=== PATIENT | male | born 1990 | race American Indian/Alaskan Native ===

== ENCOUNTER 2018-10-18 09:41 | Emergency (ER) | payer SELFPAY ==
[2018-10-18] MEDS ORDERED: TORADOL IV ONE (09:42)
[2018-10-18] MEDS ORDERED: NACL 0.9% 1000 ML 1,000 ML IV ONE (09:42)
[2018-10-18] MEDS ORDERED: XYLOCAINE 1% 20 mL INFILTRATI ONE (09:44)
[2018-10-18] MEDS ORDERED: NACL 0.9% IR ONE (09:44)
[2018-10-18] MEDS ORDERED: TRIPLE ANTIBIOTIC TP ONE (09:44)
[2018-10-18] MEDS ORDERED: BOOSTRIX IM ONE (09:44)
[2018-10-18] MEDS ORDERED: MORPHINE IV ONE (09:45)
--- NOTE | 2018-10-18 09:46 | Event Note ---
ED Screening Note ED Screening Note: WAS ON CONSTRUCTION SITE PIECE OF METAL FELL FROM ? HEIGHT HITTING HIM IN HEAD FRIEND "GOT HIM UP" BLEEDING FROM HEAD CONTROLLED ABC INTACT ALERT TO PERSON, PLACE, TIME AND SITUATION PERRLA 4 BILATERAL C COLLAR TO MAIN ED This initial assessment/diagnostic orders/clinical plan/treatment(s) is/are subj ect to change based on patients health status, clinical progression and re- assessment by fellow clinical providers in the ED. Further treatment and workup at subsequent clinical providers discretion. Patient/guardian urged not to elope from the ED as their condition may be serious if not clinically assessed and managed. Initial orders include:
[2018-10-18 09:53] LABS: Basophils # (Auto) 0.1 K/mm3 (0.0-0.1); Basophils % (Auto) 1.1 % (0.0-1.8); Eosinophils # (Auto) 0.2 K/mm3 (0.0-0.4); Eosinophils % (Auto) 2.6 % (0.0-4.3); Lymphocytes # (Auto) 2.6 K/mm3 (1.2-5.4); Lymphocytes % (Auto) 37.6 % (13.4-35.0); Mean Corpuscular HGB Conc 35 % (32-34); Mean Corpuscular Volume 89 fl (84-94); Monocytes # (Auto) 0.6 K/mm3 (0.0-0.8); Platelet Count 250 K/mm3 (140-440); Red Blood Count 5.17 M/mm3 (3.65-5.03); Red Cell Distribution Width 14.1 % (13.2-15.2)
--- NOTE | 2018-10-18 09:53 | Emergency Department Report ---
ED Head Trauma HPI - General Stated complaint: HIT IN HEAD Time Seen by Provider: 10/18/18 09:46 Source: patient Mode of arrival: Wheelchair Limitations: No Limitations - History of Present Illness Initial comments: She is a 28-year-old male that presents emergency room for head injury. Patient states she was at work and a piece of steel hit him in the head. Patient states she sustained a laceration with bleeding. Patient states he lost consciousness. Coworkers at bedside. Coworkers does state he lost consciousness was for a few seconds. Patient states that he is feeling nauseous. Patient states he vomited one time. Patient states he is feeling weak. Patient states he had a little confusion after he had had. Patient complaining of a headache. Patient states the headache is a 7 out of 10. He states that headache is better with rest and worse with exertion. MD Complaint: head injury, head pain -: Sudden Mechanism of Injury: machine or tool related Location: frontal Loss of Consciousness: yes, second(s) Previous Trauma to this Area: No Place: work Radiation: none Severity: severe Severity scale (0 -10): 7 Quality: sharp Consistency: constant Provoking factors: none known Other Injuries: laceration Associated Symptoms: confusion, nausea, vomiting, vertigo, neck pain. denies: amnesia, repetitive questioning, vision changes, syncope, numbness, weakness, tingling - Related Data Previous Rx's Medication Instructions Recorded Last Taken Type Ondansetron [Zofran Odt] 4 mg PO Q8HR PRN #15 tab.rapdis 10/18/18 Unknown Rx Allergies/Adverse reactions: Allergies Allergy/AdvReac Type Severity Reaction Status Date / Time No Known Allergies Allergy Unverified 10/18/18 10:18 ED Review of Systems ROS: Stated complaint: HIT IN HEAD Other details as noted in HPI Constitutional: denies: chills, fever Eyes: denies: eye pain, eye discharge, vision change ENT: denies: ear pain, throat pain Respiratory: denies: cough, shortness of breath, wheezing Cardiovascular: denies: chest pain, palpitations Endocrine: no symptoms reported Gastrointestinal: denies: abdominal pain, nausea, diarrhea Genitourinary: denies: urgency, dysuria Musculoskeletal: denies: back pain, joint swelling, arthralgia Skin: denies: rash, lesions Neurological: headache, confusion. denies: weakness, paresthesias Psychiatric: denies: anxiety, depression Hematological/Lymphatic: denies: easy bleeding, easy bruising ED Past Medical Hx - Past Medical History Previous Medical History?: No - Surgical History Past Surgical History?: No - Family History Family history: no significant - Social History Smoking Status: Never Smoker Substance Use Type: None - Medications Home Medications: Home Medications Medication Instructions Recorded Confirmed Last Taken Type Ondansetron [Zofran Odt] 4 mg PO Q8HR PRN #15 tab.rapdis 10/18/18 Unknown Rx ED Physical Exam - General Limitations: No Limitations General appearance: alert, in no apparent distress - Head Head exam: Present: normal inspection (except for right frontal laceration), other - Eye Eye exam: Present: normal appearance - ENT ENT exam: Present: mucous membranes moist - Neck Neck exam: Present: normal inspection - Respiratory Respiratory exam: Present: normal lung sounds bilaterally. Absent: respiratory distress - Cardiovascular Cardiovascular Exam: Present: regular rate, normal rhythm. Absent: systolic mu rmur, diastolic murmur, rubs, gallop - GI/Abdominal GI/Abdominal exam: Present: soft, normal bowel sounds - Rectal Rectal exam: Present: deferred - Extremities Exam Extremities exam: Present: normal inspection - Back Exam Back exam: Present: normal inspection - Neurological Exam Neurological exam: Present: alert, oriented X3 - Psychiatric Psychiatric exam: Present: normal affect, normal mood - Skin Skin exam: Present: warm, dry, intact, normal color. Absent: rash ED Course Vital Signs 10/18/18 10/18/18 10/18/18 09:58 10:10 10:20 Temperature 99.0 F Pulse Rate 72 Respiratory 15 20 Rate Blood Pressure 144/88 Blood Pressure [Left] O2 Sat by Pulse 98 98 Oximetry 10/18/18 11:54 Temperature Pulse Rate 55 L Respiratory 16 Rate Blood Pressure Blood Pressure 127/89 [Left] O2 Sat by Pulse 98 Oximetry - Reevaluation(s) Reevaluation #1: Initial evaluation has been done. Patient placed on a code trauma. Patient was taken to CT scan. Patient's labs will be done. Once we have CT scan results we will close the left frontal/scalp laceration. 10/18/18 10:06 Discussed all results with patient. We will close the laceration at this time. C-collar removed. The patient states his pain is controlled. Patient states he is feeling better. Patient agrees to plan of care. 10/18/18 11:55 Laceration to the scalp closed. See procedure note 10/18/18 12:26 Patient ambulated without problems. Patient did not have any symptoms or problems ambulating. Discussed all results with patient. Patient is stable for discharge. Patient will be discharged home.. Patient agrees to plan of care.. Patient given discharge instructions. Patient voiced understanding of dis charge instructions. 10/18/18 12:36 - Laceration /Wound Repair Right Head Wound Location: head Wound's Depth, Shape: superficial Wound Explored: clean Betadine Prep?: Yes Sterile Dressing Applied?: Yes Progress: Prior to closure patient wound irrigated with 100 mL of saline. 5 cm laceration closed with 6 heidi. Bleeding controlled. Edges well approximated. Patient tolerated procedure. No complications noted. - Lab Data Result diagrams: 10/18/18 09:42 10/18/18 09:42 Lab Results 10/18/18 10/18/18 10/18/18 Range/Units 09:42 09:42 09:42 WBC 7.0 (4.5-11.0) K/mm3 RBC 5.17 H (3.65-5.03) M/mm3 Hgb 16.0 H (11.8-15.2) gm/dl Hct 46.0 H (35.5-45.6) % MCV 89 (84-94) fl MCH 31 (28-32) pg MCHC 35 H (32-34) % RDW 14.1 (13.2-15.2) % Plt Count 250 (140-440) K/mm3 Lymph % (Auto) 37.6 H (13.4-35.0) % [place] % (Auto) 8.0 H (0.0-7.3) % Eos % (Auto) 2.6 (0.0-4.3) % Baso % (Auto) 1.1 (0.0-1.8) % Lymph # 2.6 (1.2-5.4) K/mm3 [place] # 0.6 (0.0-0.8) K/mm3 Eos # 0.2 (0.0-0.4) K/mm3 Baso # 0.1 (0.0-0.1) K/mm3 Seg Neutrophils % 50.7 (40.0-70.0) % Seg Neutrophils # 3.6 (1.8-7.7) K/mm3 PT 12.6 (12.2-14.9) Sec. INR 0.97 (0.87-1.13) APTT 22.8 L (24.2-36.6) Sec. Sodium 141 (137-145) mmol/L Potassium 4.2 (3.6-5.0) mmol/L Chloride 103.7 (98-107) mmol/L Carbon Dioxide 21 L (22-30) mmol/L Anion Gap 21 mmol/L BUN 27 H (9-20) mg/dL Creatinine 1.2 (0.8-1.5) mg/dL Estimated GFR > 60 ml/min BUN/Creatinine Ratio 23 % Glucose 153 H (75-100) mg/dL Calcium 9.7 (8.4-10.2) mg/dL Total Bilirubin 0.70 (0.1-1.2) mg/dL AST 24 (5-40) units/L ALT 29 (7-56) units/L Alkaline Phosphatase 100 (35-129) units/L Total Protein 7.3 (6.3-8.2) g/dL Albumin 4.4 (3.9-5) g/dL Albumin/Globulin Ratio 1.5 % Plasma/Serum Alcohol (0-0.07) % Blood Type Antibody Screen 10/18/18 10/18/18 Range/Units 09:42 09:42 WBC (4.5-11.0) K/mm3 RBC (3.65-5.03) M/mm3 Hgb (11.8-15.2) gm/dl Hct (35.5-45.6) % MCV (84-94) fl MCH (28-32) pg MCHC (32-34) % RDW (13.2-15.2) % Plt Count (140-440) K/mm3 Lymph % (Auto) (13.4-35.0) % [place] % (Auto) (0.0-7.3) % Eos % (Auto) (0.0-4.3) % Baso % (Auto) (0.0-1.8) % Lymph # (1.2-5.4) K/mm3 [place] # (0.0-0.8) K/mm3 Eos # (0.0-0.4) K/mm3 Baso # (0.0-0.1) K/mm3 Seg Neutrophils % (40.0-70.0) % Seg Neutrophils # (1.8-7.7) K/mm3 PT (12.2-14.9) Sec. INR (0.87-1.13) APTT (24.2-36.6) Sec. Sodium (137-145) mmol/L Potassium (3.6-5.0) mmol/L Chloride (98-107) mmol/L Carbon Dioxide (22-30) mmol/L Anion Gap mmol/L BUN (9-20) mg/dL Creatinine (0.8-1.5) mg/dL Estimated GFR ml/min BUN/Creatinine Ratio % Glucose (75-100) mg/dL Calcium (8.4-10.2) mg/dL Total Bilirubin (0.1-1.2) mg/dL AST (5-40) units/L ALT (7-56) units/L Alkaline Phosphatase (35-129) units/L Total Protein (6.3-8.2) g/dL Albumin (3.9-5) g/dL Albumin/Globulin Ratio % Plasma/Serum Alcohol < 0.01 (0-0.07) % Blood Type O POSITIVE Antibody Screen Negative - Radiology Data Radiology results: report reviewed CT scan of cervical spine: History: Trauma. Findings: Normal height of vertebral bodies and intervertebral disc are normal articular surfaces. No fracture appeared normal. No paravertebral soft tissue. Impression: No evidence of acute fracture. CT scan of head without IV contrast: History: Trauma. Findings: Ventricles are normal in size and midline in location. No evidence of acute ischemia, hemorrhage or mass. No extra-axial fluid collection. Normal brainstem and cerebellum. Normal visualized sinuses and mastoid air cells. Impression: No acute intracranial abnormality. - Medical Decision Making Patient is a 28-year-old male that presents emergency room for head injury. Patient found to have a scalp laceration and a concussion. Patient's CT of the head negative. Patient's CT of the C-spine negative. Patient symptoms improved. Patient responded well to therapy. Patient's laceration closed with 6 heidi. Patient given staple instructions. Patient stable for discharge. Patient ambulate without problem. Patient had no symptoms or dizziness or nausea with ambulation. Patient will need to be off work until cleared by neurologist to return to work due to the severity of the head injury. - Differential Diagnosis injury. Concussion. Loss of consciousness. Laceration Critical Care Time: Yes Critical care attestation.: If time is entered above; I have spent that time in minutes in the direct care of this critically ill patient, excluding procedure time. Critical Care Time: 45 minutes ED Disposition Clinical Impression: Neck pain, Loss of consciousness Scalp laceration Qualifiers: Encounter type: initial encounter Qualified Code(s): S01.01XA - Laceration without foreign body of scalp, initial encounter Head injury Qualifiers: Encounter type: initial encounter Qualified Code(s): S09.90XA - Unspecified injury of head, initial encounter Concussion Qualifiers: Encounter type: initial encounter Loss of consciousness presence/duration: with LOC of 30 min or less Qualified Code(s): S06.0X1A - Concussion with loss of consciousness of 30 minutes or less, initial encounter Headache Qualifiers: Headache type: post-traumatic Headache chronicity pattern: acute headache Intractability: not intractable Qualified Code(s): G44.319 - Acute post- traumatic headache, not intractable Disposition: DC-01 TO HOME OR SELFCARE Is pt being admited?: No Does the pt Need Aspirin: No Condition: Stable Instructions: Laceration (ED), Concussion (ED), Minor Head Injury (ED), Post Concussion Syndrome (ED), Staple Care (ED) Additional Instructions: Patient to follow-up with primary care in 2-3 days. Patient to follow-up with neurologist within 2-3 days for clearance to return to work. Patient to stay off work until cleared by neurologist. Patient to follow concussion guidelines given. Patient to avoid driving. Patient to take Tylenol or ibuprofen when necessary for pain. Patient to return to ER if condition worsens. Patient to take meds as directed. Patient to increase water. Patient to rest. Prescriptions: Ondansetron [Zofran Odt] 4 mg PO Q8HR PRN #15 tab.rapdis PRN Reason: Nausea And Vomiting Referrals: PRESTON ALVAREZ MD [Primary Care Provider] - 2-3 Days Time of Disposition: 12:32
[2018-10-18 10:11] LABS: Alanine Aminotransferase 29 units/L (7-56); Albumin 4.4 g/dL (3.9-5); BUN/Creatinine Ratio 23; Blood Urea Nitrogen 27 mg/dL (9-20); Calcium 9.7 mg/dL (8.4-10.2); Hemolysis Index 10
[2018-10-18 10:15] LABS: INR 0.97 (0.87-1.13)
[2018-10-18 10:16] LABS: Partial Thromboplastin Time 22.8 Sec. (24.2-36.6)
--- NOTE | 2018-10-18 11:10 | Cat Scan Report ---
CT scan of cervical spine: History: Trauma. Findings: Normal height of vertebral bodies and intervertebral disc are normal articular surfaces. No fracture appeared normal. No paravertebral soft tissue. Impression: No evidence of acute fracture.
--- NOTE | 2018-10-18 11:12 | Cat Scan Report ---
CT scan of head without IV contrast: History: Trauma. Findings: Ventricles are normal in size and midline in location. No evidence of acute ischemia, hemorrhage or mass. No extra-axial fluid collection. Normal brainstem and cerebellum. Normal visualized sinuses and mastoid air cells. Impression: No acute intracranial abnormality.
[2018-10-18 13:01] VITALS: BP 130/89
== END 2018-10-18 12:59 | disposition home or self-care (01) ==
LOC: ED 09:41
DX: S01.01XA Laceration without foreign body of scalp, initial encounter (principal); S09.90XA Unspecified injury of head, initial encounter; M54.2 Cervicalgia; W22.8XXA Striking against or struck by other objects, initial encounter; Y93.89 Activity, other specified; Y92.69 Other specified industrial and construction area as the place of occurrence of the external cause; Y99.8 Other external cause status
CPT/HCPCS: 12002; 36415; 70450; 72125; 80053; 85025; 85610; 85730; 86850; 86900; 86901; 96361; 96374; 96375; 99284; G0480; J1885; J2270; J7030; 80320; 90715; A6250